=== PATIENT | female | born 1935 | race Caucasian/White ===

== ENCOUNTER 2017-01-12 16:00 | Inpatient (IN) | payer MEDICARE, BC ==
[~2017-01-12] VITALS: Ht 160 cm; Wt 52.0 kg
--- NOTE | ~2017-01-12 | DS ---
PATIENT'S NAME: DELMY VELASQUEZ [facility] AGE: 81 Y [address] [place] [facility] [place], [place] [address] LOCATION: GPCU ADMIT DATE: 01/15/2017 Discharge Summary DISCHARGE DATE: 01/19/2017 FAMILY PHYSICIAN: Curt Chavez MD ATTENDING PHYSICIAN: Frantz Calderon DIAGNOSES: 1. Adenocarcinoma of the right colon. 2. Hypertension. 3. Iron deficiency anemia. 4. Decreased hearing acuity. SUMMARY: Delmy Velasquez is an 81-year-old female, who was seen by Dr. Calderon in consultation in [place] on January 08, 2017. The patient had a history of anemia requiring blood transfusions. The patient underwent a colonoscopy where a mass was identified near the hepatic flexure. This area was tattooed and biopsies returned showing adenocarcinoma. The patient had a CT scan of her chest, which revealed small pulmonary nodules of unclear significance. CT of the abdomen and pelvis revealed no evidence of metastatic disease. Dr. Calderon discussed recommendations for colon resection. Risks, benefits, and alternatives were discussed, and the patient decided to proceed. She underwent a mechanical bowel prep preoperatively. She was admitted to [facility] on the morning of January 15, where we proceeded with a laparoscopic right hemicolectomy. She received Mefoxin 2 g IV preoperatively and this was continued postoperatively x3 doses. Please see Dr. Calderon's operative note for specifics on the procedure. Postoperatively, Matamoros was placed to dependent drainage. The patient was monitored by telemetry. Pulmonary toiletry was encouraged. Lovenox was ordered for DVT prophylaxis. Lactated Ringer's ran at 100 mL/h. IV acetaminophen and IV Dilaudid were ordered for pain control. Her home medications were reconciled continuing Duvoid, Welchol, and Toprol-XL. On postop day #1, the patient complained that she had not slept much. She was a little bit nauseated. She reported passing some gas. Her vital signs were stable. Hemoglobin was 10.2. She was started on a clear liquid diet, and IV medications were switched to oral Tylenol and [place]. Physical therapy and occupational therapy were ordered to evaluate and treat, and the patient was encouraged to be up to the chair and ambulating as tolerated. Diovan was added from her home medication list. On postop day #2, the patient reported some nausea and vomiting with eating. She was passing gas. Vital signs remained stable. She had active bowel sounds. She was advanced to a full liquid diet. On postop day #3, the patient was feeling better, but still reported no appetite. She had had 7 stools. She was advanced to a surgical soft diet and IV was saline locked. Later that day, it was noted that her bowel movements had old blood present. This did clear up and her hemoglobin remained stable on postop day #4 at 10.5. The patient reported eating some, but was concerned because it went right through her. PATIENT'S NAME: DELMY VELASQUEZ [facility] AGE: 81 Y [address] ROOM: [id number] [place], [place] [address] LOCATION: GPCU ADMIT DATE: 01/15/2017 Discharge Summary DISCHARGE DATE: 01/19/2017 FAMILY PHYSICIAN: Curt Chavez MD ATTENDING PHYSICIAN: Frantz Calderon She was sore. She was concerned about discharge plans in regard to the specific room that [facility] was planning to place her in. Vital signs remained stable. Lungs were clear. Heart, regular. Abdomen had positive bowel sounds. Incisions were intact with no erythema. Arrangements have been made for the patient to transfer to the [facility] this morning by private auto. She will follow up with Dr. Calderon in 1 to 2 weeks in [place]. She will continue on a regular diet. Continue with PT and OT. She will allow the Steri-Strips to fall off the incision on their own. She may shower. The Matamoros catheter was removed on postop day #1, and she is voiding fine, so no urinary catheter is present at this time. DISCHARGE MEDICATIONS: Include resuming her home medications of, 1. Duvoid 25 mg p.o. 3 times daily. 2. Colace 100 mg p.o. daily p.r.n. constipation. 3. Ferrous sulfate 325 mg p.o. daily. 4. Lactase 3000 units p.o. twice daily. 5. Toprol-XL 25 mg p.o. twice daily. 6. Omeprazole 40 mg p.o. q.a.m. 7. Diovan 80 mg p.o. daily. 8. Milk of magnesia 10 mL p.o. daily p.r.n. constipation. 9. Centrum Silver 1 tablet p.o. daily. 10. Os-Pascual with vitamin D 3 tablets p.o. daily. 11. Ultram 25 mg p.o. twice daily p.r.n. pain. 12. Welchol 625 mg p.o. daily. 13. Vitamin D3 2000 units p.o. daily. 14. Refresh 1 drop ophthalmic twice daily. 15. Ocuvite with multivitamin tablet 1 p.o. daily. 16. Tylenol PM Extra Strength 1 capsule p.o. at bedtime. Prescription was written for [place] 5/325 one to two p.o. q.4 hours p.r.n. pain, dispensing 30 with no refills. 17. Tylenol 650 mg p.o. q.6 hours p.r.n. pain or fever. Final pathology results are still pending at this time. For specifics on day- to-day care, please refer to the hospital chart. PAUL DIAZ PA-C FOR MD ALEXIA SUH/kathy /[id number] d: 01/19/1748 t: 01/26/1712, DISCHARGE SUMMARY
--- NOTE | ~2017-01-12 | OR ---
PATIENT'S NAME: LETY VELASQUEZ [facility] AGE: 81 Y [address] ROOM: [address] [address] LOCATION: GPCU ADMIT DATE: 01/15/2017 OR/Procedure Report DISCHARGE DATE: FAMILY PHYSICIAN: Curt Chavez MD ATTENDING PHYSICIAN: Frantz Ladd SURGEON: Frantz Ladd MD DY[employer]IC [employer]ANCER SET UP WORKER: Roberto Dennis PA-C. DATE OF PROCEDURE: 01/15/2017 PREOPERATIVE DIAGNOSIS: Right colonic adenocarcinoma. POSTOPERATIVE DIAGNOSIS: Right colonic adenocarcinoma. PROCEDURE: Laparoscopic right colectomy. FINDINGS: Tumor was present at the hepatic flexure. ESTIMATED BLOOD LOSS: 50 mL. COMPLICATIONS: None. INDICATIONS: The patient is an 81-year-old female who presented with anemia. She was found to have a mass at her hepatic flexure, found to be adenocarcinoma. We discussed surgical excision of this with the patient and the risks, benefits, and alternatives; and she elected to proceed. DESCRIPTION OF PROCEDURE: The patient was taken into the operating room. She was supine, given IV sedation, subsequently intubated. Her abdomen was prepped with ChloraPrep and sterilely draped. A Veress needle was inserted in the left subcostal region. Pneumoperitoneum was induced. Following this, a 5- mm optical viewing trocar was inserted in the left abdomen. The camera was inserted. There was no injury from Veress or initial trocar placement. A second 5-mm trocar was inserted in the left lower abdomen and this was also inserted under direct visualization. There were adhesions along the midline, that were taken down both bluntly and with electrocautery. The third trocar was then inserted, this was inserted near the umbilicus. This was an 11-mm trocar and inserted under direct visualization. A tattoo was visible in the right upper quadrant, this was within the peritoneum, but a small amount visible to hepatic flexure, tumor was present in this area. The right colic vessels were elevated. A window was created beneath these. These were divided with the EnSeal device. We continued dissection in a medial to lateral fashion mobilizing up to the duodenum and down towards the terminal ileum. The lateral attachment was then divided with the EnSeal device. The mesentery was also divided to the mid transverse colon as well as at the terminal ileum. Once the colon was completely mobile, hemostasis was checked PATIENT'S NAME: LETY VELASQUEZ [facility] AGE: 81 Y [address] ROOM: [address] [address] LOCATION: GPCU ADMIT DATE: 01/15/2017 OR/Procedure Report DISCHARGE DATE: FAMILY PHYSICIAN: Curt Chavez MD ATTENDING PHYSICIAN: Frantz Ladd and had been obtained. During the dissection, it was somewhat difficult as there was some retroperitoneal scarring from her previous operation making ureter identification quite difficult. The bowel was adequately mobilized, a small midline incision was created and carried into subcutaneous tissues through the fascia using electrocautery. The abdominal cavity was entered. An Oscar wound protector was placed. The bowel was then delivered through the incision. Proximal and distal resection sites had been selected, these were divided with ALDEN staplers. The bowel was then placed in a [id number] fashion. Enterotomy and colotomy were created. ALDEN stapler was inserted and fired creating a common lumen. The enterotomy and colotomy were closed with a TA stapler. The specimen had been sent off. The anastomosis was palpated, it was intact. The suture line was reinforced with interrupted 3-0 silk suture. This was allowed to fall back into the abdominal cavity. The midline fascia was then closed with 0 PDS suture. Prior to complete closure, the trocar was again inserted, pneumoperitoneum was again induced. The operative field was inspected, it appeared hemostatic. The area was irrigated. Fluid was removed. The pneumoperitoneum was then released. The trocars were removed. The trocar sites appeared hemostatic. The suture was tied and skin edges were all approximated with 4-0 Monocryl suture. Steri-Strips and sterile dressings were placed. The patient was extubated and sent to recovery. FRANTZ LADD MD BJO/modl /[id number] d: 01/15/17 2321 t: 06/30/17 0609, OPERATIVE SUMMARY
[~2017-01-12 16:00] MED LIST: CENTRUM SILVER1 TAB PO; COLACE100 MG PO; DAIRY RELIE3000 UNIT PO; DIOVAN80 MG PO; FEOSOL325 MG PO; MILK OF MA400 MG/5 M PO; OCUVITE EYE +1 EACH PO; OMEPRAZOLE40 MG PO; OSCAL + D500 MG PO; REFRESH PLUS1 EACH OPHTH; TOPROL XL25 MG PO; TYLENOL PM EX-1 EACH PO; ULTRAM50 MG PO; VITAMIN D-32000 UNI1 PO; WELCHOL 625MG625 MG PO; [UNRECOGNIZED DRUG - OTHER] PO
--- NOTE | 2017-01-15 14:31 | NUR ---
01/15/17 1430 25MCG IV FENTANYL GIVEN PER ORDER FOR C/O PAIN. PATIENT BECAME SLEEPY AND OXYGEN SA02 DECREASED TO 85%. OXYGEN 2LN/C PLACED. SA02 INCREASED TO 97%.
[2017-01-15 14:42] LABS: ALBUMIN 3.2 gm/dL (3.5-5.0); ALK PHOS 78 IU/L (33-138); ALT 24 IU/L (12-78); ANION GAP 9.9 (10.0-19.0); AST 26 IU/L (10-40); BLOOD UREA NITROGEN 16 mg/dL (6-24); CALCIUM 9.1 mg/dL (8.5-10.5); CHLORIDE 108 mMol/L (96-110); CO2 27 mMol/L (22-32); CREATININE 0.7 mg/dL (0.5-1.1); ESTIMATED GFR (MDRD EQUATION) > 60; POTASSIUM 3.9 mMol/L (3.7-5.1); SODIUM 141 mMol/L (135-145); TOTAL BILIRUBIN 0.9 mg/dL (0.0-1.5); TOTAL PROTEIN 6.4 g/dL (6.0-8.4)
[2017-01-15 15:36] LABS: HEMOGLOBIN 10.7 g/dL (10.0-15.0); MCHC 29.7 gm/dL (32.0-36.5); PLATELET COUNT 314 K/uL (150-450); WBC 7.5 K/uL (4.0-11.0)
[2017-01-15 15:38] LABS: RBC SEE COMM M/uL (3.00-5.00)
[2017-01-15 15:40] LABS: HEMATOCRIT 36 % (30.0-46.0); MCH SEE COMM pg (27.0-34.0); MCV SEE COMM fl (83.0-98.0); MPV 8.3 fl (9.4-12.4)
[2017-01-15 16:34] LABS: ABSOLUTE NEUTROPHIL CT (ANC) 5.8 K/uL (1.8-7.8); BANDED NEUTROPHIL # 0.6 K/uL (0.0-0.1); BANDED NEUTROPHILS % 8 %; LYMPHOCYTE # 0.8 K/uL (0.8-4.0); LYMPHOCYTE % 11 %; MONOCYTE # 0.8 K/uL (0.0-1.0); SEGMENTED NEUTROPHIL # 5.2 K/uL (1.8-7.8); SEGMENTED NEUTROPHIL % 69 %
--- NOTE | 2017-01-16 04:52 | NUR ---
Significant Event: A/O, SBP 120-150s, HR 60-80s, RA-1L to keep sats >90% while asleep, abdominal dressing x4 gauze/tegaderm, outlined old drainage, tender/distended abdomen, hyperactive bowel tones, patient reports not passing any gas yet, rating pain /10, scheduled Ofirmev and Diluadid 0.5mg given x2, IV abt, LR running at 100ml/hr to L)[place] STEWART to be d/c'd this am, adequate output, stood at bedside with walker, dizzy upon changing positions, using IS Follow up: continue to monitor, advance diet today
[2017-01-16 04:53] LABS: ANION GAP 10.1 (10.0-19.0); BLOOD UREA NITROGEN 14 mg/dL (6-24); CALCIUM 8.3 mg/dL (8.5-10.5); CHLORIDE 109 mMol/L (96-110); CO2 25 mMol/L (22-32); CREATININE 0.8 mg/dL (0.5-1.1); ESTIMATED GFR (MDRD EQUATION) > 60; POTASSIUM 4.1 mMol/L (3.7-5.1); SODIUM 140 mMol/L (135-145)
[2017-01-16 06:10] LABS: WBC 9.3 K/uL (4.0-11.0)
[2017-01-16 06:11] LABS: HEMOGLOBIN 10.2 g/dL (10.0-15.0); RBC SEE COMM M/uL (3.00-5.00)
[2017-01-16 06:12] LABS: HEMATOCRIT 32 % (30.0-46.0); MCV SEE COMM fl (83.0-98.0)
[2017-01-16 06:13] LABS: MCH SEE COMM pg (27.0-34.0)
[2017-01-16 06:14] LABS: MCHC 31.9 gm/dL (32.0-36.5)
[2017-01-16 06:15] LABS: EOSINOPHIL % 0.2 %; LYMPHOCYTE # 1.1 K/uL (0.8-4.0); LYMPHOCYTE % 11.7 %; MPV 8.6 fl (9.4-12.4); NEUTROPHIL # (ANC) 7.1 K/uL (1.8-7.8); NEUTROPHIL % 76.6 %; PLATELET COUNT 302 K/uL (150-450)
[2017-01-16 06:16] LABS: BASOPHIL % 0.3 %; IMMATURE GRANULOCYTE % 0.2 %
--- NOTE | 2017-01-16 15:27 | NUR ---
Introduced self and role of care management to pt. She states she lives alone in [place] and has 4 sons in the area. She is up with a walker at times, gets meals on wheels. I did discuss dc plans and she is wanting to go to [facility] and the doctor was going to set up. I explained I can work on this. I did call Liz at [facility] and faxed referral. They know the pt because she has been there a couple times. I did talk with Dr Penaloza and believes she would be ready by Sunday.
--- NOTE | 2017-01-16 17:22 | NUR ---
Significant Event: Patient A/O x 3. Hard of hearing. Up with 1A. VSS on RA augustoughout the day. Anxious this morning due to pain, but has calmed down as the day proceeded. Received Dialudid at approximately 1434, [place] at 1327, and Zofran at 1653. All have provided relief. Patient states that left abdomen and right shoulder have been the source of her pain today. Encouraged ambulation to help relieve gas pain. Nauseated with pain medication and no PO intake, but subsiding. New PIV to Right posterior FA with D5 1/2 NS infusing at 50 ml/hr. Puncture sites x 4 to abdomen remain unchanged. Follow up: Continue as per plan of care. Encourage PO intake and activity.
--- NOTE | 2017-01-17 06:34 | NUR ---
Significant Event: A/O, SBP 130-170s, RA, 1L placed while asleep to keep >90%, afebrile, passing flatus, had 2 small liquid dark brown BMs, abdomen not as distended/firm this am, dressings dry/intact, sba to bathroom, [place] 2 tab at 0240, IVF continue Follow up: to [facility] /sunday
--- NOTE | 2017-01-17 13:00 | NUR ---
I did update Erika at [facility] and faxed update. WIll wait to see if they will accept. WIll be ready on Sunday.
--- NOTE | 2017-01-17 16:44 | NUR ---
Significant Event: Patient A/O x3. Afebrile. RA. BP's 150-120's. HR 80-70's. Hard of hearing. Ambulates with 1A, walker, and gait belt. C/O pain less today. Receiced [place] 2 tab x2 last dose @ 1431. No complaint of nausa today. Ambulated in [place] with PT X2. Dr. Ferrell okayed for shower in the am. Passing flatus and having loose stools. Puncture sites x 4 to abdomen remain unchanged. Better po intake today. Possible discharge 01/19 to [facility]. Follow up: Continue as per plan of care. Encourage ambulating and po intake.
--- NOTE | 2017-01-18 04:50 | NUR ---
Significant Event: A/O x3. Afebrile. Pain in abdomen and back. Gave norco 2 tabs x2. VSS on RA. Lap tristen 4 abd sites, c/d/i. Old drainage marked. 3 soft/loose dark brown and green BMs. Urinary urgency and retention. 1 assist with walker. Follow up: continue to monitor per plan of care.
--- NOTE | 2017-01-18 11:58 | NUR ---
I did talk with Erika at [facility] and they will be able to accept but unsure if they can transport due to van in [place]. I did call son Darren and he states he will be able to transport her and to plan on being here around 10am for transport. I will update [facility] and Roberto LARIOS.
--- NOTE | 2017-01-18 17:58 | NUR ---
Patient tolerating soft diet with fair appetite. She has had multiple loose brown to maroon stools per the bathroom. Dr Calderon aware of stools. Patient denies needing prn pain meds this shift. Ambulated multiple times in the room and hallway. Plan to discharge to [facility] in [place] on 01/19/17.
--- NOTE | 2017-01-19 05:08 | NUR ---
A&O. VSS. Afebrile. Lap sites from colon resection. Abdominal dressing intact. Old blood in stools- MD aware. Last BM didn't have any blood. Call MD if bright red blood in stool. SBA with walker. Tylenol/ Tramadol given x1. [place] given x 1. Continue plan of care- discharge to [facility] today at 1030.
[2017-01-19 05:56] LABS: BASOPHIL % 0.6 %; EOSINOPHIL # 0.6 K/uL (0.0-0.5); EOSINOPHIL % 8.9 %; HEMOGLOBIN 10.5 g/dL (10.0-15.0); IMMATURE GRANULOCYTE % 0.1 %; LYMPHOCYTE # 1.1 K/uL (0.8-4.0); LYMPHOCYTE % 16.3 %; MONOCYTE # 0.8 K/uL (0.0-1.0); MONOCYTE % 12.1 %; MPV 8.5 fl (9.4-12.4); NEUTROPHIL # (ANC) 4.3 K/uL (1.8-7.8); NRBC % 0 /100WBC (0-0.00); WBC 6.9 K/uL (4.0-11.0)
[2017-01-19 06:06] LABS: PLATELET COUNT 392 K/uL (150-450)
[2017-01-19 06:07] LABS: MCV SEE COMM fl (83.0-98.0); RBC SEE COMM M/uL (3.00-5.00)
[2017-01-19 06:08] LABS: MCH SEE COMM pg (27.0-34.0)
[2017-01-19 06:45] LABS: MCHC 32.8 gm/dL (32.0-36.5)
--- NOTE | 2017-01-19 09:49 | NUR ---
Patient admitted for lap colon resection related to colon cancer. She has 4 puncture sites with steri strips in place. No drainage noted from sites. A/O x 4. Ambulates with walker and 1 SBA. Room air. Patient is having frequent loose maroon colored stools. Dr Calderon not concerned as long as stools remain maroon. If they turn bright red he would like to be notified. H/H today was 10.5/32. Patient taking 50-75% of meals. Ultram 25mg po given for c/o abdominal pain this morning.
--- NOTE | 2017-01-19 14:42 | NUR ---
I got a call from Tiffanie [facility]ETS at 0900 and she has orders and son will be here at 1000. I called and spoke with Lisha and faxed orders to [facility] and they are ready to accept. WIll assist as needed.
--- NOTE | 2017-02-08 14:01 | NUR ---
Patient was discharged to [facility]. I have not been able to reach her for her post hospitalization follow up call.
== END 2017-01-19 10:40 | DRG 331 ==
LOC: GPCU 01-15 12:41
PROVIDERS: ADMIT Surgery
PROC: 0DBK4ZZ Excision of Ascending Colon, Percutaneous Endoscopic Approach (ICD-10-PCS; principal; 2017-01-15)
DX: C18.2 Malignant neoplasm of ascending colon (principal); I10 Essential (primary) hypertension; D50.9 Iron deficiency anemia, unspecified; H91.90 Unspecified hearing loss, unspecified ear; M81.0 Age-related osteoporosis without current pathological fracture
CPT/HCPCS: C9113; J0131; J0694; J1100; J1170; J1650; J2001; J2405; J3010; J3480; J7030; J7040; J7050; J7120